=== PATIENT | female | born 1940 | race Caucasian/White ===

== ENCOUNTER 2021-09-23 13:44 | Emergency (ER) | payer MEDICARE ==
[~2021-09-23] VITALS: Ht 162.6 cm; Wt 68.1 kg
[2021-09-23] MEDS ORDERED: HYDROcodone/acetaminophen 10/325mg tab PO ONE (14:00)
[2021-09-23] MEDS ORDERED: morphine 4 MG/ML inj SYRINge IM ONE (14:05)
[2021-09-23] MEDS ORDERED: ondansetron 4mg rapidly disintigrating tab PO ONE (14:05)
[2021-09-23 14:45] VITALS: BP 169/78
[2021-09-23] MEDS ORDERED: HYDR-3972 PO (15:31)
== END 2021-09-23 15:59 | disposition home or self-care (01) ==
LOC: ER 13:45
DX: S82.032A Displaced transverse fracture of left patella, initial encounter for closed fracture (principal); Z88.2 Allergy status to sulfonamides; W01.0XXA Fall on same level from slipping, tripping and stumbling without subsequent striking against object, initial encounter; Y93.89 Activity, other specified; Y92.89 Other specified places as the place of occurrence of the external cause; Y99.8 Other external cause status
CPT/HCPCS: 29530; 73564; 96372; 99283; J2270

== ENCOUNTER 2024-06-20 23:28 | Inpatient (IN) | payer MEDICARE ==
[~2024-06-20] VITALS: Ht 162.6 cm; Wt 64.5 kg
[2024-06-21 00:05] LABS: BASOPHILS # (AUTO) 0.1 X10'3 (0-0.2); BASOPHILS % (AUTO) 0.8 % (0-1); EOSINOPHILS # (AUTO) 0.2 X10'3 (0-0.9); EOSINOPHILS % (AUTO) 1.5 % (0-6); HEMOGLOBIN 14.4 g/dl (12.0-16.0); LYMPHOCYTES # (AUTO) 2.4 X10'3 (1.1-4.8); LYMPHOCYTES % (AUTO) 23.2 % (21-51); MEAN CORPUSCULAR HEMOGLOBIN 30.2 PG (27.0-31.0); MEAN CORPUSCULAR HGB CONC 33.5 g/dL (33.0-36.5); MEAN CORPUSCULAR VOLUME 90.1 FL (78-98); MEAN PLATELET VOLUME 10.5 FL (7.4-10.4); MONOCYTES # (AUTO) 0.6 X10'3 (0-0.9); MONOCYTES % (AUTO) 6.3 % (2-12); NEUTROPHILS # (AUTO) 7.1 X10'3 (1.8-7.7); NEUTROPHILS % (AUTO) 68.2 % (42-75); PLATELET COUNT 219 X10'3 (140-440); RED BLOOD COUNT 4.77 X10'6 (4.20-5.60); RED CELL DISTRIBUTION WIDTH 13.7 % (11.5-14.5); WHITE BLOOD COUNT 10.3 X10'3 (4.5-11.0)
[2024-06-21] MEDS: HYDROmorphone 1 mg/ml syringe IV ONE (00:07)
[2024-06-21] MEDS: ondansetron/PF 4mg/2ml inj IV ONE (00:07)
[2024-06-21] MEDS: ketorolac trometh 15mg/ml vial 15 MG/ML ML IV ONE (00:07)
[2024-06-21] MEDS: normal saline 1000ml 1,000 ML IV ONE (00:08)
[2024-06-21 00:20] LABS: ALANINE AMINOTRANSFERASE 20 U/L (12-78); ALBUMIN 3.9 G/DL (3.4-5.0); ALBUMIN/GLOBULIN RATIO 1.1 (1.1-1.5); ALKALINE PHOSPHATASE 133 IU/L (46-116); ANION GAP 13 (8-16); ASPARTATE AMINO TRANSFERASE 18 U/L (10-37); BILIRUBIN,TOTAL 0.3 MG/DL (0.1-1.0); BLOOD UREA NITROGEN 21 MG/DL (7-18); BUN/CREATININE RATIO 19.3 (10.0-20.0); CHLORIDE 106 MMOL/L (99-107); CREATININE 1.09 MG/DL (0.40-0.90); GLUCOSE 139 MG/DL (70-104); LIPASE 44 U/L (16-77); SODIUM 143 MMOL/L (135-145); TOTAL CARBON DIOXIDE 23.9 MMOL/L (24-32); TOTAL PROTEIN 7.3 G/DL (6.4-8.2); eCRCL 35 ML/MIN; eGFR 48 ML/MIN
[2024-06-21 02:13] LABS: BILIRUBIN,URINE SMALL (Neg); CLARITY,URINE CLOUDY (Clear); COLOR,URINE YELLOW (Yellow); GLUCOSE, URINE NEGATIVE (Neg); KETONES,URINE NEGATIVE (Neg); LEUKOCYTE ESTERASE ,URINE MODERATE (Neg); NITRITES, URINE POSITIVE (Neg); OCCULT BLOOD,URINE LARGE (Neg); PH,URINE 5.5 (4.8-8.0); PROTEIN,URINE 100 mg/dl (Neg); UROBILINOGEN,URINE 0.2 E.U/dL (0.2-1.0)
[2024-06-21 02:26] LABS: UA COLLECTION TYPE CLN CATCH MIDSTREAM
[2024-06-21 02:27] LABS: CAL OXALATE CRYSTALS 1+ /HPF (NEGATIVE); MUCUS STRANDS FEW /LPF (Neg); RBC,URINE 20-50 /HPF (0-2); RENAL CELLS, URINE FEW /HPF; SQUAMOUS EPITHELIAL CELL,UR FEW /LPF (FEW); TRANSITIONAL EPI CELLS,URINE FEW /HPF; WBC CLUMPS,URINE FEW /HPF (NEGATIVE)
[2024-06-21 02:28] LABS: AMORPHOUS URATES 1+; BACTERIA,URINE 1+ /HPF (Neg)
[2024-06-21] MEDS ORDERED: potassium Cl 20 mEq SR tablet PO PRN ×2 (03:45)
[2024-06-21] MEDS ORDERED: morphine 2 MG/ML inj. syringe IV PRN ×2 (03:45)
[2024-06-21] MEDS ORDERED: ondansetron/PF 4mg/2ml inj IV PRN (03:45)
[2024-06-21] MEDS ORDERED: magnesium sulf-water 4G/100mL 100 ML IV PRN (03:45)
[2024-06-21] MEDS ORDERED: acetaminophen 325mg tablet PO PRN ×2 (03:45)
[2024-06-21] MEDS ORDERED: potassium Cl 40MEQ/1/2NS 520ml 520 ML IV PRN (03:45)
[2024-06-21] MEDS ORDERED: magnesium hydroxide 30ml (MOM) UD suspension PO PRN (03:45)
[2024-06-21] MEDS ORDERED: mag hydrox/Alum hydrox/simeth 30ml oral suspension PO PRN (03:45)
[2024-06-21] MEDS ORDERED: magnesium sulf-water 2g/50mL 50 ML IV PRN (03:45)
[2024-06-21] MEDS ORDERED: magnesium Cl slow-release 64mg tablet PO PRN (03:45)
[2024-06-21] MEDS ORDERED: CefTRIAXone/D5W-Rocephin 1gm 50 ML IV SCH (04:13)
[2024-06-21] MEDS ORDERED: piperacillin/tazo 3.375gm/50ml 50 ML IV SCH ×2 (04:17→13:00)
[2024-06-21] MEDS: normal saline 1000ml 1,000 ML IV SCH (04:30)
[2024-06-21] MEDS: piperacillin/tazo 3.375gm/50ml 50 ML IV ONE (04:31)
[2024-06-21] MEDS: tamsulosin 0.4mg capsule PO SCH (07:14)
[2024-06-21] MEDS ORDERED: LEVO88TA7 PO (07:19)
[2024-06-21] MEDS ORDERED: LOVA20TA2 PO (07:19)
[2024-06-21] MEDS: K and/or MAG REPLACEMENT MC SCH (08:00)
[2024-06-21] MEDS: CefTRIAXone/D5W-Rocephin 1gm 50 ML IV SCH (09:06)
[2024-06-21 09:50] LABS: MAGNESIUM 1.5 MG/DL (1.5-2.4); POTASSIUM 4.6 MMOL/L (3.5-5.1)
[2024-06-21 10:00] VITALS: BP 120/53; PULSE 70; RESP 16; TEMP 97.6; O2SAT 98
[2024-06-21 10:00] LABS: THYROID STIMULATING HORMONE 0.33 ulU/ml (0.34-4.50)
[2024-06-21 15:00] VITALS: RESP 16; O2SAT 98
[2024-06-21] MEDS: piperacillin/tazo 3.375gm/50ml 50 ML IV SCH (16:29)
[2024-06-21] MEDS ORDERED: HYDROcodone/acetaminophen 5mg/325mg tablet PO PRN (17:40)
[2024-06-21] MEDS ORDERED: HYDROcodone/acetaminophen 10/325mg tab PO PRN (17:40)
[2024-06-21 18:00] VITALS: BP 129/52; PULSE 51; RESP 16; TEMP 97.2; O2SAT 97
[2024-06-21] MEDS: ketorolac trometh 15mg/ml vial 15 MG/ML ML IM SCH (21:04)
[2024-06-21 22:00] VITALS: BP 112/36; PULSE 58; RESP 16; TEMP 97.7; O2SAT 99
[2024-06-22 06:20] VITALS: BP 124/43; PULSE 54; RESP 18; TEMP 97; O2SAT 92
[2024-06-22 06:42] LABS: BASOPHILS % (AUTO) 0.3 % (0-1); EOSINOPHILS # (AUTO) 0.1 X10'3 (0-0.9); EOSINOPHILS % (AUTO) 2.1 % (0-6); HEMOGLOBIN 11.9 g/dl (12.0-16.0); LYMPHOCYTES # (AUTO) 2.2 X10'3 (1.1-4.8); LYMPHOCYTES % (AUTO) 36.1 % (21-51); MEAN CORPUSCULAR HEMOGLOBIN 30.5 PG (27.0-31.0); MEAN CORPUSCULAR HGB CONC 33.1 g/dL (33.0-36.5); MEAN CORPUSCULAR VOLUME 92.1 FL (78-98); MEAN PLATELET VOLUME 10.9 FL (7.4-10.4); MONOCYTES # (AUTO) 0.4 X10'3 (0-0.9); MONOCYTES % (AUTO) 6.7 % (2-12); NEUTROPHILS # (AUTO) 3.3 X10'3 (1.8-7.7); NEUTROPHILS % (AUTO) 54.8 % (42-75); PLATELET COUNT 162 X10'3 (140-440); RED BLOOD COUNT 3.92 X10'6 (4.20-5.60); RED CELL DISTRIBUTION WIDTH 13.9 % (11.5-14.5)
[2024-06-22 06:46] LABS: ALBUMIN 2.8 G/DL (3.4-5.0); ANION GAP 6 (8-16); BLOOD UREA NITROGEN 24 MG/DL (7-18); BUN/CREATININE RATIO 23.8 (10.0-20.0); CHLORIDE 110 MMOL/L (99-107); CREATININE 1.01 MG/DL (0.40-0.90); GLUCOSE 96 MG/DL (70-104); MAGNESIUM 1.5 MG/DL (1.5-2.4); POTASSIUM 4.1 MMOL/L (3.5-5.1); SODIUM 141 MMOL/L (135-145); TOTAL CARBON DIOXIDE 25.3 MMOL/L (24-32); eCRCL 38 ML/MIN; eGFR 53 ML/MIN
[2024-06-22 08:00] VITALS: RESP 18; O2SAT 92
[2024-06-22 10:03] VITALS: BP 125/54; PULSE 54; RESP 16; TEMP 97.8; O2SAT 97
[2024-06-22] MEDS ORDERED: tamsulosin capsule PO (13:11)
[2024-06-22] MEDS ORDERED: CIPR-259 PO (13:14)
[2024-06-22 13:55] VITALS: RESP 16
[2024-06-22] MEDS ORDERED: LEVO125T8 PO (17:22)
== END 2024-06-22 14:45 | disposition home or self-care (01) | DRG 690 ==
LOC: ER 23:29 → ED HOLD 06-21 03:47 → UNDOADMOB 06-21 05:22 → ED HOLD 06-21 05:22 → OBSVTOIN 06-21 05:22 → INTOOBSV 06-21 05:22 → ED HOLD 06-21 07:45 → ORTHO 4S 06-21 07:45 → UNDODISIN 06-22 14:45
PROVIDERS: ADMIT Internal Medicine Pulmonary Disease; ATTEND Family Medicine
DX: N13.6 Pyonephrosis (principal); I25.10 Atherosclerotic heart disease of native coronary artery without angina pectoris; N18.30 Chronic kidney disease, stage 3 unspecified; K57.30 Diverticulosis of large intestine without perforation or abscess without bleeding; E83.52 Hypercalcemia; Z88.2 Allergy status to sulfonamides; Z90.710 Acquired absence of both cervix and uterus
CPT/HCPCS: 36415; 74176; 80048; 80053; 81001; 82330; 83605; 83690; 83735; 83970; 84132; 84145; 84443; 85025; 87077; 87081; 87088; 87186; 99285; G0378; J0696; J1170; J1885; J2405; J2543; J7030

== ENCOUNTER 2025-04-28 11:24 | Outpatient (CLI) | payer MEDICARE ==
[~2025-04-28 11:24] MED LIST: LEVO125T8 PO; LOVA20TA2 PO; tamsulosin capsule PO
--- NOTE | 2025-04-28 13:42 | RADIOLOGY REPORT ---
PROCEDURE: MR MRI LUMBAR SPINE INDICATION: LUMBAR RADICULOPATHY Exam Date: 04/28/2025 11:57 AM COMPARISON: None TECHNIQUE: MRI lumbar spine without intravenous contrast. FINDINGS: The lumbar alignment is intact. There are degenerative endplate changes including modic endplate ch anges with anterior and lateral osteophytes throughout the lumbar spine. The visualized distal spinal cord and conus medullaris are within normal limits. The conus medullaris appears to terminate withi n normal limits. The visualized retroperitoneal and paraspinal soft tissues are unremarkable. The following axial levels are detailed below: T12-L1: Unremarkable. L1-L2: Unremarkable. L2-L3: There is a mild circumferential disc bulge. No significant central canal or neuroforaminal s tenosis. L3-L4: There is a moderate circumferential disc bulge complicated by facet arthropathy associated w ith mild to moderate left neuroforaminal stenosis. No significant central canal stenosis. L4-L5: There is a moderate circumferential disc bulge complicated by facet arthropathy associated w ith mild to moderate bilateral neuroforaminal stenosis. No significant central canal stenosis. L5-S1: There is a mild circumferential disc bulge. No significant central canal or neuroforaminal st enosis. IMPRESSION: 1. Mild degenerative disease. No significant central canal stenosis. Neural foraminal stenosis as a ok. HS:Y
--- NOTE | 2025-04-28 19:02 | RADIOLOGY REPORT ---
CLINICAL INDICATION: R HIP PAIN AND OA COMPARISON: None TECHNIQUE: Multiplanar, multi-sequence MRI of the right hip was performed without intravenous contrast. Contrast: None INTERPRETATION: Bones and joints: There is extensive susceptibility artifacts presence of a right hip replacement. T his significantly limits evaluation of regional structures particularly of the bone marrow signal chi racteristics. There is a right hip joint effusion. The alignment the prosthesis is not evaluated due to artifact. Tendons, muscles and bursae: There is tear of the gluteus medius tendon. Gluteus minimus is intact. There is fatty replacement of the right gluteus medius muscle. Fluid present in the greater trochant yoselin bursa. Soft tissues: There is subcutaneous edema in the right hip foci susceptibility artifact indicating pr ior surgery. IMPRESSION: 1. Status post Right hip replacement with extensive artifact from the presence of the hip replacement limiting evaluation. Right hip joint effusion noted which is fairly nonspecific and should be correl ated with patient's symptoms. Arthrocentesis may be obtained if there is any concern for infection or hardware failure. Subcutaneous edema in the right hip. 2. Tear of the right gluteus medius tendon with fatty infiltration of the muscle. HS:Y
== END 2025-04-28 23:59 | disposition home or self-care (01) ==
LOC: MRI02 11:24
PROVIDERS: ATTEND Physician Assistant
DX: S76.011A Strain of muscle, fascia and tendon of right hip, initial encounter (principal); M25.451 Effusion, right hip; M16.11 Unilateral primary osteoarthritis, right hip; M25.551 Pain in right hip; Z96.641 Presence of right artificial hip joint; M48.061 Spinal stenosis, lumbar region without neurogenic claudication; M47.26 Other spondylosis with radiculopathy, lumbar region; X58.XXXA Exposure to other specified factors, initial encounter; Y93.89 Activity, other specified; Y92.89 Other specified places as the place of occurrence of the external cause; Y99.8 Other external cause status
CPT/HCPCS: 72148; 73721